=== PATIENT | male | born 1970 | race Caucasian/White ===

== ENCOUNTER 2021-11-25 13:30 | Outpatient (CLI) | payer BC, SELFPAY ==
[2021-11-25 17:56] LABS: Chloride* 105 mmol/L (96-114); Potassium* 3.8 mmol/L (3.6-5.1); Sodium* 144 mmol/L (135-149)
[2021-11-25 17:58] LABS: Cholesterol* 173 mg/dL (90-199); Estimated Glomerular Filt Rate 92 ml/min
[2021-11-25 17:59] LABS: Blood Urea Nitrogen* 20 mg/dL (7-30); Calcium* 10.2 mg/dL (8.4-10.6); Carbon Dioxide* 25 mmol/L (20-32); Glucose* 104 mg/dL (60-115); HDL Cholesterol* 23 mg/dL (>=40)
[2021-11-25 18:11] LABS: LDL Cholesterol Calculated 37 mg/dL (<100); Triglycerides* 565 mg/dL (40-149)
[2021-11-25 18:28] LABS: PSA Screen* 0.88 ng/mL (0.10-4.00)
== END 2021-11-25 13:31 | disposition home or self-care (01) ==
PROVIDERS: PCP Family Medicine; Visit Provider Family Medicine
DX: Z79.899 Other long term (current) drug therapy (principal); I10 Essential (primary) hypertension; E11.9 Type 2 diabetes mellitus without complications; H69.80 Other specified disorders of Eustachian tube, unspecified ear; E78.5 Hyperlipidemia, unspecified; Z12.5 Encounter for screening for malignant neoplasm of prostate
CPT/HCPCS: 80048; 80061; 84153

== ENCOUNTER 2022-04-25 11:55 | Outpatient (CLI) | payer BC, SELFPAY | END 2022-04-25 11:56 | disposition home or self-care (01) | LOC: OP CLINIC 11:55 | PROVIDERS: PCP Family Medicine; Visit Provider Internal Medicine | DX: Z12.11 Encounter for screening for malignant neoplasm of colon (principal); K63.5 Polyp of colon; K62.1 Rectal polyp | CPT/HCPCS: 45380; 45385; 88305; J2250; J3010 ==

== ENCOUNTER 2022-12-30 08:06 | Outpatient (CLI) | payer BC, SELFPAY ==
[2022-12-30 13:48] LABS: Chloride* 106 mmol/L (96-114); Sodium* 142 mmol/L (135-149)
[2022-12-30 13:49] LABS: Potassium* 4.2 mmol/L (3.6-5.1)
[2022-12-30 13:51] LABS: Alanine Aminotransferase* 94 U/L (4-50); Anion Gap 12 mEq/L (7-15); Blood Urea Nitrogen* 25 mg/dL (7-30); Carbon Dioxide* 24 mmol/L (20-32); Creatinine* 0.9 mg/dL (0.5-1.5); Estimated Glomerular Filt Rate 103 ml/min
[2022-12-30 13:52] LABS: Calcium* 10.1 mg/dL (8.4-10.6); Glucose* 154 mg/dL (60-115)
== END 2022-12-30 08:07 | disposition home or self-care (01) ==
PROVIDERS: PCP Family Medicine; Visit Provider Family Medicine
DX: I10 Essential (primary) hypertension (principal); E78.5 Hyperlipidemia, unspecified; E11.9 Type 2 diabetes mellitus without complications; Z12.5 Encounter for screening for malignant neoplasm of prostate
CPT/HCPCS: 80048; 80061; 84153; 84460

== ENCOUNTER 2023-08-11 11:00 | Outpatient (CLI) | payer BC, SELFPAY | END 2023-08-11 11:01 | disposition home or self-care (01) | PROVIDERS: PCP Family Medicine; Visit Provider Family Medicine | DX: E78.2 Mixed hyperlipidemia (principal); I10 Essential (primary) hypertension | CPT/HCPCS: 80061; 84460 ==

== ENCOUNTER 2023-12-15 09:24 | Outpatient (CLI) | payer BC, SELFPAY | END 2023-12-15 09:25 | disposition home or self-care (01) | PROVIDERS: PCP Family Medicine; Visit Provider Family Medicine | DX: E78.2 Mixed hyperlipidemia (principal); I10 Essential (primary) hypertension | CPT/HCPCS: 80048; 80061; 80076 ==

== ENCOUNTER 2024-05-18 08:31 | Outpatient (CLI) | payer BC, SELFPAY | END 2024-05-18 08:32 | disposition home or self-care (01) | LOC: FBOREF 08:31 | PROVIDERS: PCP Family Medicine; Visit Provider Family Medicine | DX: Z12.5 Encounter for screening for malignant neoplasm of prostate (principal) | CPT/HCPCS: G0103 ==

== ENCOUNTER 2024-10-25 10:09 | Outpatient (CLI) | payer BC, SELFPAY | END 2024-10-25 10:10 | disposition home or self-care (01) | PROVIDERS: PCP Family Medicine; Visit Provider Family Medicine | DX: I10 Essential (primary) hypertension (principal); E11.9 Type 2 diabetes mellitus without complications | CPT/HCPCS: 80048; 85025 ==

== ENCOUNTER 2024-11-03 06:48 | Day surgery (SDC) | payer BC, SELFPAY ==
[2024-11-03] MEDS: LACTATED RINGERS 1000 ML 1,000 ML 100 ML IV (07:00)
[2024-11-03 07:12] VITALS: BMI 40.6
[2024-11-03 07:16] VITALS: BP 139/93; PULSE 71; RESP 16; TEMP 36.8; O2SAT 97
[2024-11-03] MEDS: SODIUM CHLORIDE 0.9 % (FLUSH) 10 ML SYRINGE IVF (07:39)
[2024-11-03] MEDS: LIDOCAINE 2%-EPI 1:200,000 20 ML INFILTRATI (09:05)
[2024-11-03] MEDS: BUPIVACAINE 0.5 %/EPI 1:200K INJECTION (09:05)
--- NOTE | 2024-11-03 09:50 | P.ORPRC_ITS ---
Procedure Note Date of procedure: 11/03/24 Procedure: Preop diagnosis: Left upper extremity cubital tunnel syndrome Postop diagnosis: Left upper extremity cubital tunnel syndrome Procedure: Left upper extremity cubital tunnel release Anesthesia: Local plus MAC Surgeon: Nilson Guaman MD assistant professor of geography: Madonna Jiménez PA-C EBL: 0 mL Complications: None Specimens: None Drains: None Preoperative antibiotics: Ancef 3 g Indications: The patient has a history of left upper extremity cubital tunnel syndrome symptoms. EMG/nerve conduction study confirms the diagnosis. Despite appropriate nonoperative management they continue to have symptoms. Operative intervention was recommended. The risks, benefits alternatives and expected outcomes were discussed in detail. These included but were not limited to: Infection, bleeding, injury to blood vessel or nerve, venous thromboembolism. All questions were answered to their satisfaction. The patient was placed supine on the operating room table. General anesthesia was administered. The upper extremity was prepped and draped in usual sterile fashion. The limb was exsanguinated with the Brian bandage, the pneumatic tourniquet was inflated to 225 mm of mercury. A longitudinal incision was made centered over the ulnar nerve at the cubital tunnel. Subcutaneous dissection was taken with the scalpel, Metzenbaum and tenotomy scissors to the ulnar nerve. Dissection was carried distally to the fascia over the flexor carpi ulnaris which was divided longitudinally. We visualized the motor branch to the FCU. Dissection was carried proximally into the triceps muscle belly. This results in a wide decompression of the ulnar nerve. Flexion and extension of the elbow shows the nerve is stable. The wound was irrigated with normal saline. It was closed with a 2-0 Vicryl and a 3-0 Monocryl in a subcuticular fashion. Glue was used to seal the skin. A soft dressing was applied. The tourniquet was released. The patient tolerated the procedure well, there were no apparent complications. They were sent to same day surgery in satisfactory condition. Plan: Use of the upper extremity as tolerates. Discontinue the intraoperative dressing on postoperative day 3 and may get the wound wet as tolerates. Follow up in the office in 2 weeks for a wound check.
[2024-11-03 10:12] VITALS: BP 102/73; PULSE 54; RESP 16; TEMP 36.8; O2SAT 96
[2024-11-03 10:15] VITALS: BP 110/74; PULSE 60; RESP 16; O2SAT 96
[2024-11-03] MEDS: ACETAMINOPHEN 325 MG TABLET PO (10:15)
--- NOTE | 2024-11-03 10:15 | P.ANES_ITS ---
Anesthesia Charges Start Date/Time Anesthesia Start Date: 11/03/24 Anesthesia Start Time: 08:51 Stop Date/Time Anesthesia Stop Date: 11/03/24 Anesthesia Stop Time: 10:12 Coding CPT Codes CPT Codes: ANESTH ELBOW AREA SURGERY - 25992 ([id number]) P3 - PATIENT W/SEVERE SYS DISEASE, QZ - DELIVERY MANAGER SVC W/O MACHINE ICER BY
--- NOTE | 2024-11-03 10:15 | W.ANESCHARGE ---
Anesthesia Charges Start Date/Time Anesthesia Start Date: 11/03/24 Anesthesia Start Time: 08:51 Stop Date/Time Anesthesia Stop Date: 11/03/24 Anesthesia Stop Time: 10:12 Coding CPT Codes CPT Codes: ANESTH ELBOW AREA SURGERY - 05007 ([id number]) P3 - PATIENT W/SEVERE SYS DISEASE, QZ - HOOK AND EYE ATTACHER SVC W/O HARD TILE SETTER BY
[2024-11-03 10:30] VITALS: BP 112/77; PULSE 64; RESP 16; O2SAT 96
[2024-11-03 10:45] VITALS: BP 120/74; PULSE 71; RESP 16; O2SAT 96
== END 2024-11-03 11:11 | disposition home or self-care (01) ==
LOC: OR 06:49
PROVIDERS: PCP Family Medicine; Visit Provider Orthopaedic Surgery
PROC: (CPT 64718; principal; 2024-11-03 09:00)
DX: G56.22 Lesion of ulnar nerve, left upper limb (principal); E11.9 Type 2 diabetes mellitus without complications; G47.33 Obstructive sleep apnea (adult) (pediatric); Z79.85 Long-term (current) use of injectable non-insulin antidiabetic drugs
CPT/HCPCS: 64718; 01710; 82962; A9270; J0690; J1100; J2250; J2405; J2704; J3010; J3490; J7120